=== PATIENT | male | born 1990 | race Caucasian/White ===

== ENCOUNTER 2019-03-22 15:51 | Inpatient (IN) ==
[2019-03-22 16:38] LABS: Basophils # 0.1 K/mcL (0.0-0.2); Basophils % 0.8 %; Eosinophils # 0.2 K/mcL (0.0-0.6); Eosinophils % 2.1 %; Hematocrit 42.7 % (37.5-50.1); Hemoglobin 14.2 g/dL (12.9-16.9); Immature Granulocytes % 0.4 % (0-4); Lymphocytes # 2.4 K/mcL (0.6-4.6); Lymphocytes % 24.6 %; Mean Corpuscular HGB Conc 33.3 g/dL (31.6-35.5); Mean Corpuscular Volume 90.3 fL (83.0-100.0); Mean Platelet Volume 10.1 fL (9.4-12.4); Monocytes # 0.8 K/mcL (0.0-1.3); Monocytes % 8.4 %; Neutrophils # 6.2 K/mcL (1.6-8.9); Platelet Count 249 K/mcL (140-400); Red Blood Count 4.73 M/mcL (4.19-5.50); Red Cell Distribution Width 12.6 % (11.5-14.5); Segmented Neutrophils % 63.7 %; White Blood Count 9.7 K/mcL (4.3-11.1)
[2019-03-22] MEDS ORDERED: *HR* LORazepam 1 MG TABLET PO ONE (16:45)
[2019-03-22 16:51] LABS: Acetaminophen < 10 mcg/mL (10-20); BUN/Creatinine Ratio 12 (6-26); Blood Urea Nitrogen 12 mg/dL (6-20); Calcium 9.4 mg/dL (8.6-10.3); Carbon Dioxide 23 mEq/L (23-29); Chloride 105 mEq/L (98-107); Ethanol < 10 mg/dL (Less than 10); Glucose 173 mg/dL (70-105); Osmolality,Calculated 288 (280-300); Potassium 4.7 mEq/L (3.5-5.1); Salicylate < 2.5 mg/dL (15.0-30.0); Sodium 137 mEq/L (136-145); eGFR For African Americans > 60 (> 60); eGFR For Non-African Americans > 60 (> 60)
[2019-03-22] MEDS ORDERED: Ziprasidone 20 MG CAPSULE PO STA (16:53)
[2019-03-22 17:01] LABS: Bilirubin,Urine Negative (Negative); Blood,Urine Negative (Negative); Clarity,Urine Clear (Clear); Color,Urine Yellow (Yellow); Glucose,Urine (UA) Normal (Normal); Ketones,Urine Negative (Negative); Leukocyte Esterase,Urine Negative (Negative); Nitrite,Urine Negative (Negative); Protein,Urine Negative (Neg-Trace); Specific Gravity,Urine 1.017 (1.010-1.025); Urobilinogen,Urine Normal (Normal)
[2019-03-22 17:29] LABS: Amphetamine Screen,Urine Negative ng/mL (Cutoff=1000); Barbiturate Screen,Urine Negative ng/mL (Cutoff=200); Benzodiazepines Screen,Urine Negative ng/mL (Cutoff=200); Cannabinoid Screen,Urine Positive ng/mL (Cutoff = 50); Cocaine Screen,Urine Negative ng/mL (Cutoff= 300); Opiate Screen,Urine Negative ng/mL (Cutoff=300); Phencyclidine Screen,Urine Negative ng/mL (Cutoff=25)
[2019-03-22] MEDS ORDERED: Metoprolol XL (24 HR) Succ 50 MG TAB.ER.24H PO SCH (18:15)
[2019-03-22] MEDS ORDERED: Nicotine 21 MG PATCH.TD24 TD STA (19:45)
[2019-03-22] MEDS ORDERED: Nicotine 21 MG PATCH.TD24 TD SCH (19:45)
[2019-03-22] MEDS ORDERED: Metoprolol XL (24 HR) Succ 50 MG TAB.ER.24H PO STA (19:45)
[2019-03-22] MEDS ORDERED: Naloxone 0.4 MG/ML INJ IVP PRN (20:44)
[2019-03-22] MEDS ORDERED: Neosporin OINT 15 GM TUBE TP PRN (21:39)
[2019-03-22] MEDS ORDERED: Dexmedetomidine HCl 400 MCG/100 ML MLS IVC SCH (22:15)
[2019-03-23] MEDS ORDERED: Neosporin OINT 15 GM TUBE TP PRN (00:42)
[2019-03-23] MEDS ORDERED: Naloxone 0.4 MG/ML INJ IVP PRN (00:42)
[2019-03-23 04:37] LABS: Hematocrit 45.2 % (37.5-50.1); Hemoglobin 14.7 g/dL (12.9-16.9); Mean Corpuscular HGB Conc 32.5 g/dL (31.6-35.5); Mean Corpuscular Hemoglobin 29.9 pg (28.0-33.3); Mean Corpuscular Volume 91.9 fL (83.0-100.0); Platelet Count 235 K/mcL (140-400); Red Blood Count 4.92 M/mcL (4.19-5.50); Red Cell Distribution Width 12.8 % (11.5-14.5); White Blood Count 8.9 K/mcL (4.3-11.1)
[2019-03-23 04:57] LABS: BUN/Creatinine Ratio 12 (6-26); Blood Urea Nitrogen 11 mg/dL (6-20); Calcium 9.6 mg/dL (8.6-10.3); Carbon Dioxide 30 mEq/L (23-29); Chloride 102 mEq/L (98-107); Glucose 103 mg/dL (70-105); Osmolality,Calculated 290 (280-300); Potassium 4.3 mEq/L (3.5-5.1); Sodium 140 mEq/L (136-145); eGFR For African Americans > 60 (> 60); eGFR For Non-African Americans > 60 (> 60)
[2019-03-23] MEDS ORDERED: *HR* LORazepam 2 MG/ML VIAL IVP ONE (05:45)
[2019-03-23] MEDS ORDERED: Ziprasidone 10 MG in Water for inj. (sterile) 0.5 ML IM ONE (06:27)
[2019-03-23] MEDS: Dexmedetomidine HCl 400 MCG/100 ML MLS IVC SCH ×2 (06:49→12:34)
[2019-03-23] MEDS ORDERED: Haloperidol Lactate 5 MG/ML VIAL IVP ONE (18:28)
[2019-03-23] MEDS: Nicotine 21 MG PATCH.TD24 TD SCH (20:18)
[2019-03-23] MEDS: *HR* Heparin 5,000 UNIT/ML VIAL SQ SCH (20:19)
[2019-03-23] MEDS ORDERED: OLANZapine 10 MG TAB.RAPDIS PO SCH (21:00)
[2019-03-23] MEDS: Metoprolol XL (24 HR) Succ 50 MG TAB.ER.24H PO SCH (22:34)
[2019-03-24] MEDS: *HR* Heparin 5,000 UNIT/ML VIAL SQ SCH (05:42)
[2019-03-24] MEDS: Metoprolol XL (24 HR) Succ 50 MG TAB.ER.24H PO SCH (08:38)
[2019-03-24] MEDS: Nicotine 21 MG PATCH.TD24 TD SCH (08:39)
[2019-03-24] MEDS ORDERED: Nicotine 21 MG PATCH.TD24 TD SCH (09:00)
[2019-03-24] MEDS ORDERED: Metoprolol XL (24 HR) Succ 50 MG TAB.ER.24H PO SCH (09:00)
[2019-03-24 11:18] VITALS: BP 135/92
== END 2019-03-24 14:53 | DRG 885 ==
LOC: 3BNU 15:51 → EMEROOARM 15:51 → SUATTDRO 19:26 → 3BNU 20:11 → 2NNU 22:50
PROVIDERS: ADMIT Pharmacist; ATTEND Internal Medicine

== ENCOUNTER 2019-03-24 14:46 | Inpatient (IN) ==
[2019-03-24] MEDS ORDERED: MOM Conc 10 ML UD.LIQ PO PRN (15:01)
[2019-03-24] MEDS ORDERED: Haloperidol Lactate 5 MG/ML VIAL IM PRN (15:01)
[2019-03-24] MEDS ORDERED: *HR* LORazepam 2 MG/ML VIAL IM PRN (15:01)
[2019-03-24] MEDS: hydrOXYzine pamoate 25 MG CAPSULE PO PRN (17:00)
[2019-03-24] MEDS: *HR* LORazepam 1 MG TABLET PO PRN (17:51)
[2019-03-24] MEDS: Metoprolol XL (24 HR) Succ 50 MG TAB.ER.24H PO SCH (21:41)
[2019-03-24] MEDS: OLANZapine 10 MG TAB.RAPDIS PO SCH (21:41)
[2019-03-25] MEDS: hydrOXYzine pamoate 25 MG CAPSULE PO PRN ×3 (07:49→21:50)
[2019-03-25] MEDS: Nicotine 14 MG PATCH.TD24 TD SCH (08:29)
[2019-03-25] MEDS: Metoprolol XL (24 HR) Succ 50 MG TAB.ER.24H PO SCH ×2 (08:30→21:50)
[2019-03-25] MEDS: OLANZapine 5 MG TAB.RAPDIS PO SCH (11:28)
[2019-03-25] MEDS: traZODone 50 MG TABLET PO PRN (21:50)
[2019-03-25] MEDS: OLANZapine 10 MG TAB.RAPDIS PO SCH (21:50)
[2019-03-26] MEDS: hydrOXYzine pamoate 25 MG CAPSULE PO PRN ×3 (04:42→21:19)
[2019-03-26] MEDS: Mag Hydrox/Al Hydrox/Simeth 30 ML UDC PO PRN ×3 (05:14→18:15)
[2019-03-26] MEDS: Acetaminophen 325 MG TABLET PO PRN (06:17)
[2019-03-26] MEDS: Metoprolol XL (24 HR) Succ 50 MG TAB.ER.24H PO SCH ×2 (09:00→21:19)
[2019-03-26] MEDS: OLANZapine 5 MG TAB.RAPDIS PO SCH (09:00)
[2019-03-26] MEDS: Nicotine 14 MG PATCH.TD24 TD SCH (09:01)
[2019-03-26] MEDS ORDERED: Desitin (Zinc Oxide) 56 GM TUBE TP PRN (09:05)
[2019-03-26] MEDS: Nicotine 2 MG GUM BC PRN ×5 (09:28→21:23)
[2019-03-26] MEDS: *HR* LORazepam 1 MG TABLET PO PRN (14:35)
[2019-03-26] MEDS: traZODone 50 MG TABLET PO PRN (21:19)
[2019-03-26] MEDS: OLANZapine 10 MG TAB.RAPDIS PO SCH (21:21)
[2019-03-27] MEDS: Nicotine 2 MG GUM BC PRN ×3 (06:54→11:24)
[2019-03-27] MEDS: Metoprolol XL (24 HR) Succ 50 MG TAB.ER.24H PO SCH (08:20)
[2019-03-27 08:30] VITALS: BP 148/92
[2019-03-27] MEDS ORDERED: OLANZapine 10 MG TAB.RAPDIS PO SCH (09:00)
[2019-03-27] MEDS: Mag Hydrox/Al Hydrox/Simeth 30 ML UDC PO PRN (09:33)
[2019-03-27] MEDS: hydrOXYzine pamoate 25 MG CAPSULE PO PRN (10:10)
[2019-03-27] MEDS: Acetaminophen 325 MG TABLET PO PRN (10:43)
== END 2019-03-27 12:50 | disposition home or self-care (01) | DRG 885 ==
LOC: 1ANU 14:46
PROVIDERS: ADMIT Psychiatry & Neurology Psychiatry; ATTEND Psychiatry & Neurology Psychiatry